=== PATIENT | female | born 1965 | race Caucasian/White ===

== ENCOUNTER 2017-12-22 14:33 | Day surgery (SDC) | payer OTHER ==
[2017-12-22] MEDS ORDERED: PROPOFOL 80 ML (15:38)
[2017-12-22] MEDS ORDERED: LIDOCAINE 2% (SDV) 5 ML INJ (15:39)
== END 2017-12-22 16:25 | disposition home or self-care (01) ==
LOC: GIL 14:33
DX: Z12.11 Encounter for screening for malignant neoplasm of colon (principal); B96.81 Helicobacter pylori [H. pylori] as the cause of diseases classified elsewhere; K21.9 Gastro-esophageal reflux disease without esophagitis; K29.70 Gastritis, unspecified, without bleeding; D12.5 Benign neoplasm of sigmoid colon; K64.8 Other hemorrhoids; I10 Essential (primary) hypertension; E66.9 Obesity, unspecified; Z68.32 Body mass index [BMI] 32.0-32.9, adult
CPT/HCPCS: 43239; 87081; 88305